=== PATIENT | male | born 1980 | race African-American/Black ===

== ENCOUNTER 2023-06-06 01:27 | Emergency (ER) | payer OTHER ==
[~2023-06-06] VITALS: Ht 188 cm; Wt 104.0 kg
[2023-06-06 01:41] VITALS: BP 160/102
[2023-06-06] MEDS: ALBUTEROL (0.083%) 2.5MG/3ML NEB HHN STA ×2 (02:17→03:25)
[2023-06-06] MEDS: IPRATROPIUM BROMIDE (0.02%) 0.5MG/2.5ML NEB HHN STA ×2 (02:17→03:26)
[2023-06-06 02:18] VITALS: PULSE 93; RESP 18; O2SAT 97
[2023-06-06 03:14] VITALS: TEMP 98
[2023-06-06] MEDS: ACETAMINOPHEN 325MG TABLET PO NR (03:14)
[2023-06-06] MEDS: METHYLPREDNISOLONE SOD SUCC 125MG/2ML (ACT-O-VIAL) IM STA (03:14)
[2023-06-06] MEDS ORDERED: BUDE6HFA INH (03:19)
[2023-06-06] MEDS ORDERED: ALBU18HF2 IH (03:19)
[2023-06-06] MEDS ORDERED: P50 MT (03:19)
[2023-06-06 03:26] VITALS: PULSE 89; RESP 18; O2SAT 96
== END 2023-06-06 05:09 | disposition home or self-care (01) ==
LOC: ER 01:49
DX: J45.901 Unspecified asthma with (acute) exacerbation (principal); I10 Essential (primary) hypertension; Z87.01 Personal history of pneumonia (recurrent)
CPT/HCPCS: 71045; 94640; 96372; 99283; J2930; Z7610 ×3